=== PATIENT | female | born 1980 | race Caucasian/White ===

== ENCOUNTER 2025-06-24 09:12 | Outpatient (CLI) | payer OTHER, SELFPAY | END 2025-06-24 09:13 | disposition home or self-care (01) | LOC: INJ CL 09:19 | PROVIDERS: PCP Family Medicine; Visit Provider Family Medicine | DX: M51.26 Other intervertebral disc displacement, lumbar region (principal); M54.16 Radiculopathy, lumbar region; R29.898 Other symptoms and signs involving the musculoskeletal system | CPT/HCPCS: 64483; J1100; Q9966 ==